=== PATIENT | male | born 1980 | race Caucasian/White ===

== ENCOUNTER → 2017-10-09 | Outpatient (CLI) | payer BC ==
[~2017-10-09] MED LIST: BUPR100T15 GT; CEFP500T4 PO; ENAL1TAB16 PO; FLT05NA16 NSEACH; HYDR-3820 PO; MECL-124 PO; PRD20T PO; SCOP1PAT TD; TRM50T PO; VIBRID; [UNRECOGNIZED DRUG - OTHER]
--- NOTE | 2017-10-09 15:32 | Diagnostic Imaging Report ---
PROCEDURE: MRI lumbar spine 10/09/2017. TECHNIQUE: Multiplanar, multisequence MRI of the lumbar spine was performed without contrast. INDICATION: Back pain. COMPARISON: None. FINDINGS: Normal height and alignment of the vertebral bodies is noted with no subluxations appreciated. The tip of the conus is unremarkable in appearance and lies at the L1 level. L1-L2 and L2-L3: Levels are unremarkable with no significant central or neural foraminal stenosis. There does appear to be moderate narrowing bilaterally at the L1-L2 level within the neural foramina. L3-L4: The level demonstrates bilateral facet hypertrophy with fluid in the facet joints bilaterally. Minimal bulging disc material flattens the ventral thecal sac. However, no significant central narrowing is seen. There is mild bilateral neural foraminal stenosis. L4-L5: Bilateral facet and ligamentum flavum hypertrophy are seen. There is a right paracentral disc protrusion which extends towards the right lateral recess. It causes narrowing of the recess and could be causing mild encroachment upon the transiting nerve root, correlate with symptoms. There appears to be a likely previous laminectomy on the right at this level. Mild central narrowing noted. Bilateral neural foraminal stenosis is noted which is moderate in nature. L5-S1: There is intervertebral disc space narrowing and disc dessication with a central disc protrusion with bilateral facet hypertrophy also noted. Moderate central stenosis is seen. Moderate bilateral neural foraminal narrowing also noted. This is slightly worse on the right The visualized intra-abdominal structures are unremarkable. IMPRESSION: 1. Multilevel degenerative findings predominantly in the lower lumbar region with right paracentral bulging disc at L4-5 abutting the transiting right nerve root, correlate with symptoms of encroachment. 2. Other findings, as above. Dictated by: Dictated on workstation # [id number]
== END ==
LOC: RAD 13:06
PROVIDERS: ATTEND Physician Assistant
DX: M48.07 Spinal stenosis, lumbosacral region (principal); M51.27 Other intervertebral disc displacement, lumbosacral region; M89.38 Hypertrophy of bone, other site
CPT/HCPCS: 72148

== ENCOUNTER → 2019-09-25 | Outpatient (CLI) | payer BC ==
[~2019-09-25] MED LIST changes: +ACHYD1T PO; -HYDR-3820 PO
[2019-09-25 10:40] LABS: BILIRUBIN,URINE NEGATIVE (NEGATIVE); CLARITY,URINE CLEAR; COLOR,URINE YELLOW; GLUCOSE, URINE (UA) NEGATIVE (NEGATIVE); KETONES,URINE NEGATIVE (NEGATIVE); LEUKOCYTE ESTERASE ,URINE NEGATIVE (NEGATIVE); NITRITE,URINE NEGATIVE (NEGATIVE); PROTEIN,URINE NEGATIVE (NEGATIVE)
[2019-09-25 10:41] LABS: BASOPHILS % (AUTO) 0 % (0-10); EOSINOPHILS # (AUTO) 0.2 10^3/uL (0.0-0.3); EOSINOPHILS % (AUTO) 2 % (0-10); HEMATOCRIT 43 % (40-54); HEMOGLOBIN 14.5 G/DL (13.3-17.7); LYMPHOCYTES # (AUTO) 2.2 X 10^3 (1.0-4.0); LYMPHOCYTES % (AUTO) 17 % (12-44); MEAN CORPUSCULAR HEMOGLOBIN 31 PG (25-34); MEAN CORPUSCULAR HGB CONC 34 G/DL (32-36); MEAN CORPUSCULAR VOLUME 94 FL (80-99); MEAN PLATELET VOLUME 9.1 FL (7.4-10.4); MONOCYTES # (AUTO) 0.6 X 10^3 (0.0-1.0); MONOCYTES % (AUTO) 4 % (0-12); NEUTROPHILS # (AUTO) 9.9 X 10^3 (1.8-7.8); NEUTROPHILS % (AUTO) 77 % (42-75); PLATELET COUNT 268 10^3/uL (130-400); RED CELL DISTRIBUTION WIDTH 13.5 % (10.0-14.5); WHITE BLOOD COUNT 12.9 10^3/uL (4.3-11.0)
[2019-09-25 10:50] LABS: WBC,URINE RARE /HPF
[2019-09-25 10:51] LABS: BACTERIA,URINE NEGATIVE /HPF
[2019-09-25 11:00] LABS: ALANINE AMINOTRANSFERASE 15 U/L (0-55); ALBUMIN 4.5 GM/DL (3.2-4.5); ALKALINE PHOSPHATASE 79 U/L (40-136); BILIRUBIN,TOTAL 0.5 MG/DL (0.1-1.0); BUN/CREATININE RATIO 10; CALCIUM 9.3 MG/DL (8.5-10.1); CARBON DIOXIDE 27 MMOL/L (21-32); CHLORIDE 105 MMOL/L (98-107); CREATININE SERUM 1.03 MG/DL (0.60-1.30); GFR ESTIMATED > 60; GLUCOSE 123 MG/DL (70-105); POTASSIUM 4.2 MMOL/L (3.6-5.0); SODIUM 139 MMOL/L (135-145); TOTAL PROTEIN 7.1 GM/DL (6.4-8.2)
== END ==
LOC: LAB 10:16
PROVIDERS: ATTEND Family Medicine
DX: I10 Essential (primary) hypertension (principal); R63.1 Polydipsia; R35.8 Other polyuria
CPT/HCPCS: 36415; 80053; 81000; 85025

== ENCOUNTER 2020-02-01 05:37 | Outpatient (RCR) | payer BC ==
[~2020-02-01] VITALS: Ht 182 cm; Wt 75.0 kg
[~2020-02-01 05:37] MED LIST changes: +AMPH20TA2 PO; +FLUO20CA42 PO; +LOSA25TA41 PO
== END 2020-02-01 13:45 | disposition home or self-care (01) ==
LOC: PREOP 05:37
PROVIDERS: ATTEND Surgery
DX: Z01.812 Encounter for preprocedural laboratory examination (principal); Z20.828 Contact with and (suspected) exposure to other viral communicable diseases; R10.13 Epigastric pain; K92.1 Melena; Z80.0 Family history of malignant neoplasm of digestive organs; Z88.0 Allergy status to penicillin; Z88.2 Allergy status to sulfonamides
CPT/HCPCS: 87635

== ENCOUNTER 2020-02-06 08:51 | Day surgery (SDC) | payer BC ==
[~2020-02-06] VITALS: Ht 182 cm; Wt 75.0 kg
[2020-02-06] MEDS ORDERED: LACTATED RINGERS 1,000 ML IV ONE (08:52)
[2020-02-06] MEDS ORDERED: LACTATED RINGERS 1,000 ML IV STA (08:53)
[2020-02-06] MEDS ORDERED: HURRICAINE EXT TUBE (BENZOCAINE) XX PRN (09:00)
[2020-02-06 09:05] VITALS: BP 134/101
[2020-02-06] MEDS ORDERED: PROPOFOL INJECTION 50 ML IV ONE (10:11)
[2020-02-06] MEDS ORDERED: MIDAZOLAM 2 MG/2 ML (VERSED) VIAL ONE (10:11)
--- NOTE | 2020-02-06 10:12 | Progress Note-Pre Operative ---
Pre-Operative Progress Note H&P Reviewed The H&P was reviewed, patient examined and no changes noted. Date Seen by Provider: Feb 06, 2020 Time Seen by Provider: 10:12 Date H&P Reviewed: Feb 06, 2020 Time H&P Reviewed: 10:12 Pre-Operative Diagnosis: epigastric abd pain, melena, family hx colon cancer ANDREE FOSTER DO Feb 06, 2020 10:12
[2020-02-06 10:40] VITALS: BP 108/72
[2020-02-06 10:45] VITALS: BP 136/81
[2020-02-06 10:50] VITALS: BP 136/81
--- NOTE | 2020-02-06 10:53 | Progress Note-Post Operative ---
Post-Operative Progess Note Surgeon (s)/Bullet Slugs Inspector (s) Surgeon ANDREE FOSTER DO Bullet Slugs Inspector: na Pre-Operative Diagnosis epigastric abd pain, melena, family hx colon cancer Post-Operative Diagnosis hiatal hernia, normal colon Procedure & Operative Findings Date of Procedure 02/06/20 Procedure Performed/Findings egd c biopsies, colonoscopy Anesthesia Type per [facility] Estimated Blood Loss Estimated blood loss (mL): none Specimens/Packing Specimens Removed antrum, ge ANDREE FOSTER DO Feb 06, 2020 10:53
[2020-02-06] MEDS ORDERED: OMEP20TA7 PO (10:54)
--- NOTE | 2020-02-06 10:55 | Discharge Inst-Simple/Standard ---
Discharge Inst-Standard Discharge Medications New, Converted or Re-Newed RX: Transmitted to Pharmacy Patient Instructions/Follow Up Plan of Care/Instructions/FU: 2 weeks elkin Activity as Tolerated: Yes Discharge Diet: Regular Diet ANDREE FOSTER DO Feb 06, 2020 10:55
--- NOTE | 2020-02-06 11:06 | Anesthesia-General Post-Op ---
MAC Patient Condition Mental Status/LOC: Same as Preop Cardiovascular: Satisfactory Nausea/Vomiting: Absent Respiratory: Satisfactory Pain: Controlled Complications: Absent Post Op Complications Complications None Follow Up Care/Instructions Patient Instructions None needed. Anesthesiology Discharge Order Discharge Order Patient is doing well, no complaints, stable vital signs, no apparent adverse anesthesia problems. No complications reported per nursing. IRMA [facility] CRNA Feb 06, 2020 11:06
[2020-02-06 11:15] VITALS: BP 132/68
--- NOTE | 2020-02-06 13:28 | OPERATIVE REPORT ---
DATE OF SERVICE: 02/06/2020 PREOPERATIVE DIAGNOSES: Epigastric abdominal pain, melena, family history of colon cancer. POSTOPERATIVE DIAGNOSES: Hiatal hernia, normal colon. PROCEDURE: EGD with biopsies, colonoscopy. SURGEON: Andree Munguia DO ANESTHESIA: Per MDA. ESTIMATED BLOOD LOSS: None. COMPLICATIONS: None. SPECIMENS: Biopsy of the antrum and GE junction. INDICATIONS: The patient is a 39-year-old male with family history of colon cancer, epigastric abdominal pain and melena. He understands risks and benefits of procedure and wished to proceed with procedure. Consent was signed in the chart. DESCRIPTION OF PROCEDURE: The patient was taken to the endoscopy suite, placed in left lateral recumbent position. Timeout was performed. Scope was inserted in mouth, down the esophagus, stomach and into the duodenum without difficulty. There were no polyps, masses or ulcerations within the duodenum. Scope was slowly retracted back into the stomach where it was further insufflated. No polyps, masses or ulcerations. Biopsy of the antrum was obtained. Scope was retroflexed noting a hiatal hernia, no other pathology noted. Scope was returned to its normal position, slowly withdrawn to the distal esophagus. Biopsy of the GE junction was obtained. Minimal erythema, no polyps, masses or ulcerations. Scope was retracted back to completely remove noting no other pathology. Digital rectal exam was performed. There were no palpable polyps, masses or ulcerations. Scope was inserted in the rectum, advanced all the way to cecum with minimal difficulty. The terminal ileum was intubated. No polyps, masses or ulcerations. Scope was retracted back into the colon. There were no polyps, mass, ulceration of the cecum, ascending, transverse, descending and sigmoid colon. Once in the rectum, scope was retroflexed noting no other pathology. Scope was returned to its normal position, slowly withdrawn until completely removed. The patient tolerated procedure well without any complications, taken to recovery room in stable condition. RECOMMENDATIONS: The patient will be started on omeprazole 20 mg daily, see how his symptoms do and await pathology results. The patient also to have a repeat colonoscopy in 5 years due to family history of colon cancer. Any issues before that be seen at that time. Job ID: [id number] DocumentID: [id number] Dictated Date: 02/06/2020 10:57:55 [employer] Technician Date: 02/06/2020 13:27:40 Dictated By: ANDREE MUNGUIA DO
== END 2020-02-06 11:15 | disposition home or self-care (01) ==
LOC: ENDO 08:51
PROVIDERS: ATTEND Surgery
DX: K44.9 Diaphragmatic hernia without obstruction or gangrene (principal); K21.0 Gastro-esophageal reflux disease with esophagitis; K92.1 Melena; F41.9 Anxiety disorder, unspecified; F32.9 Major depressive disorder, single episode, unspecified; I10 Essential (primary) hypertension; M50.13 Cervical disc disorder with radiculopathy, cervicothoracic region; M48.02 Spinal stenosis, cervical region; F17.210 Nicotine dependence, cigarettes, uncomplicated; Z79.899 Other long term (current) drug therapy; Z88.0 Allergy status to penicillin; Z88.2 Allergy status to sulfonamides; Z80.9 Family history of malignant neoplasm, unspecified; Z82.3 Family history of stroke; Z80.0 Family history of malignant neoplasm of digestive organs

== ENCOUNTER → 2020-03-27 | Outpatient (REF) ==
[~2020-03-27] MED LIST changes: +OMEP20TA7 PO
--- NOTE | 2020-03-27 14:36 | Diagnostic Imaging Report ---
INDICATION: Injury to right hand. EXAMINATION: AP, oblique, and lateral views of the right hand are obtained. FINDINGS: No fracture or acute bony abnormality is seen. Joint spaces are unremarkable except for some cystic degenerative changes in the scaphoid. There is no radiopaque foreign body. IMPRESSION: No evidence of fracture or radiopaque foreign body. Dictated by: Dictated on workstation # [id number]
== END ==
LOC: OCC 14:05
PROVIDERS: ATTEND Nurse Practitioner Family
DX: S69.91XA Unspecified injury of right wrist, hand and finger(s), initial encounter (principal); X58.XXXA Exposure to other specified factors, initial encounter
CPT/HCPCS: 73130

== ENCOUNTER → 2020-07-31 | Outpatient (CLI) | payer BC ==
--- NOTE | 2020-07-31 13:53 | Diagnostic Imaging Report ---
PROCEDURE: MRI lumbar spine. TECHNIQUE: Multiplanar, multisequence MRI of the lumbar spine was performed without contrast. INDICATION: Chronic low back pain, history of back surgery. COMPARISON: 10/09/2017. FINDINGS: The last well-formed disc space will be labeled L5-S1 for the purposes of this examination. Alignment appears normal with no spondylolisthesis. There is disc height loss and decreased T2 signal at the L4-L5 and L5-S1 discs. Vertebral body heights are preserved. No acute fracture is seen. The conus terminates in appropriate position. Soft tissues about the lumbar spine demonstrate no acute abnormality. T12-L1: No significant disc bulge. No spinal canal or foraminal stenosis. L1-L2: No significant disc bulge. No spinal canal or foraminal stenosis. L2-L3: No significant disc bulge. No spinal canal or foraminal stenosis. L3-L4: No significant disc bulge. No spinal canal or foraminal stenosis. L4-L5: Posterior right paracentral disc protrusion and posterior annular fissure completely effacing the right lateral recess and contacting the L5 nerve root. Mild spinal canal narrowing. Moderate right and mild left foraminal stenosis. L5-S1: Right paracentral disc extrusion, with mass effect on the right S1 nerve root and causing marked narrowing of the right lateral recess. The extruded disc extends superiorly about 1.5 cm up the posterior aspect of L5. There is moderate spinal canal stenosis. There is moderate bilateral foraminal stenosis. IMPRESSION: 1. New large right paracentral disc extrusion at L5-S1, causing spinal canal and foraminal stenosis and mass effect on the right S1 nerve root. 2. Persistent disc bulge with protrusion at L4-L5, appears unchanged. Dictated by: Dictated on workstation # [id number]
== END ==
LOC: RAD 13:00
PROVIDERS: ATTEND Orthopaedic Surgery
DX: M51.16 Intervertebral disc disorders with radiculopathy, lumbar region (principal); M51.17 Intervertebral disc disorders with radiculopathy, lumbosacral region; M48.07 Spinal stenosis, lumbosacral region
CPT/HCPCS: 72148